=== PATIENT | female | born 1925 | race Caucasian/White ===

== ENCOUNTER 2016-05-26 11:31 | Emergency (ER) | payer MEDICARE ==
[2016-05-26 13:20] VITALS: BP 146/82
[2016-05-26] MEDS ORDERED: Silver Sulfadiazine 1%* 20 GM TOPICAL ONE (14:26)
--- NOTE | 2016-05-26 14:31 | UC ---
Skin Complaint HPI - HPI Summary HPI Summary: chronic venous stasis changes in right lower leg, recently discharged from [facility] as ulcers had healed and is Discharged from the [facility]ound [facility] as Patient refuses vascular surgery--Pt wishes treatment but no surgery for her chronic venous stasis ulcers - History of Current Complaint Chief Complaint: UCWounds Time Seen by Provider: 05/26/16 14:14 Stated Complaint: SORE ON LEG Hx Obtained From: Patient, Family/Leather Grainer ?: No Onset/Duration: Gradual Onset, Lasting Days - 5-7, Worse Since - past 2 days Timing: Constant Onset Severity: Mild Current Severity: Moderate Pain Intensity: 5 Pain Scale Used: 0-10 Numeric Location: Generalized - right lower leg Character: Redness, Painful Aggravating: Nothing Alleviating: Nothing Associated Signs & Symptoms: Positive: Negative - Allergy/Home Medications Allergies/Adverse Reactions: Allergies Allergy/AdvReac Type Severity Reaction Status Date / Time Codeine Allergy Intermediate confusion Verified 08/28/12 14:15 Review of Systems Constitutional: Negative Skin: Other - weeping open skin scattered over entirety of rle, chronic pitting edema and venous stasis changes Eyes: Negative ENT: Negative Respiratory: Negative Cardiovascular: Negative Gastrointestinal: Negative Genitourinary: Negative Motor: Negative Neurovascular: Negative Musculoskeletal: Negative Neurological: Negative Psychological: Negative All Other Systems Reviewed And Are Negative: Yes PMH/Surg Hx/FS Hx/Imm Hx Previously Healthy: No Endocrine History Of: Denies: Diabetes, Thyroid Disease Cardiovascular History Of: Reports: Hypertension Denies: Cardiac Disorders, Congestive Heart Failure Respiratory History Of: Denies: COPD, Asthma GI/ History Of: Denies: Ulcer - Surgical History Surgical History: Yes Surgery Procedure, Year, and Place: cardiac bypass 2009, wounds on lower legs slow healing, - Family History Known Family History: Positive: None, Hypertension, Diabetes Family History: patient is unsure of medical problems in family lineage - Social History Occupation: Retired Lives: With Family Alcohol Use: None Substance Use Type: None Smoking Status (MU): Never Smoked Tobacco Physical Exam Triage Information Reviewed: Yes Appearance: Ill-Appearing - chronic, Pain Distress - mild, Obese Vital Signs: Initial Vital Signs Temp 97.6 F 05/26/16 13:15 Pulse 73 05/26/16 13:15 Resp 18 05/26/16 13:15 BP 146/82 05/26/16 13:15 Pulse Ox 95 05/26/16 13:15 Vital Signs Reviewed: Yes Eye Exam: Normal Eyes: Positive: Conjunctiva Clear ENT Exam: Normal ENT: Positive: Normal ENT inspection, Hearing grossly normal. Negative: Nasal congestion, Nasal drainage, Trismus, Muffled/hoarse voice Neck exam: Normal Neck: Positive: Supple, Nontender, No Lymphadenopathy Respiratory Exam: Normal Respiratory: Positive: Chest non-tender, Lungs clear, Normal breath sounds, No respiratory distress, No accessory muscle use Cardiovascular Exam: Normal Cardiovascular: Positive: RRR, No Murmur, Pulses Normal, Brisk Capillary Refill , Distal Pulses Weak, Other: - jayro colored lower extremities Musculoskeletal: Positive: Strength Intact, ROM Intact, Edema @ Neurological Exam: Normal Neurological: Positive: Alert Psychological Exam: Normal Psychological: Positive: Normal Response To Family Skin: Positive: Other - stasis ulcers as described rle Course/Dx - Course Course Of Treatment: silvadene and dressing applied (past effective treatment). Appointment made at Dr. Norris office for Sunday at 9am - Differential Diagnoses - Skin Complaint Differential Diagnoses: Cellulitis, Contact Dermatitis, Impetigo, Local Allergic Reaction, Other - Diagnoses Provider Diagnoses: Venous Stasis Ulcers RLE Discharge - Discharge Plan Condition: Stable Disposition: HOME Prescriptions: Silver Sulfadiazine 1% 400gm* [SILVadine 1% 400 gm jar*] 1 applic TOPICAL DAILY #1 jar Patient Education Materials: Acute Wound Care (ED), Stasis Dermatitis (ED) Referrals: Richard Chou MD [Primary Care Provider] - 05/29/16 9:00 am
== END 2016-05-26 15:02 | disposition home or self-care (01) ==
LOC: UCEAST 11:31
DX: I83.018 Varicose veins of right lower extremity with ulcer other part of lower leg (principal); L97.819 Non-pressure chronic ulcer of other part of right lower leg with unspecified severity; Z88.6 Allergy status to analgesic agent
CPT/HCPCS: 99212; A9270-GY; G0463